=== PATIENT | female | born 1990 | race Caucasian/White ===

== ENCOUNTER 2017-04-14 20:21 | Inpatient (IN) | payer MEDICAID, OTHER ==
[~2017-04-14] VITALS: Ht 177.8 cm; Wt 128.0 kg
[2017-04-14] MEDS ORDERED: ONDANSETRON 4 MG INJ IV STA (22:38)
[2017-04-14] MEDS ORDERED: SOD CHLORIDE 0.9% 1,000 ML IV STA (22:38)
[2017-04-14] MEDS ORDERED: morphine 4 MG/ML VIAL IV STA (22:38)
--- NOTE | 2017-04-14 22:48 | ERD ---
ER Documentation Chief Complaint Chief Complaint bilateral arm pain/cramping, abdominal pain x 1 day. denies injury (WALLY CRAWFORD NP) HPI This 26-year-old female presents here in emergency department for complaints of body cramping, bilateral arm pain, after having an episode of abdominal pain this morning. Patient started to have upper abdominal pain this morning, had chills, describes the pain as cramping pain, 6/10 scale, radiated all over the body. Patient is complaining of nausea but denies any vomiting. (WALLY CRAWFORD NP) ROS All systems reviewed and are negative except as per history of present illness. (WALLY CRAWFORD NP) Medications Home Meds Reported Medications [none] Unknown Strength No Conflict Check 04/14/17 Allergies Allergies: Coded Allergies: No Known Drug Allergies (Verified Allergy, Unknown, 04/14/17) PMhx/Soc Medical and Surgical Hx: pt denies Medical Hx, pt denies Surgical Hx (WALLY CRAWFORD NP) FmHx Family History: No coronary disease, No diabetes, No other (WALLY CRAWFORD NP) Physical Exam Vitals Vital Signs Date Time Temp Pulse Resp B/P Pulse Ox O2 Delivery O2 Flow Rate FiO2 04/15/17 02:15 99.6 99 17 134/72 93 Room Air 04/14/17 20:26 100.1 118 20 122/93 96 (LOPEZ FIELD MD) Physical Exam GENERAL: The patient is well developed and appropriate for usual state of health, in no apparent distress. CHEST: Clear to auscultation bilaterally. There are no rales, wheezes or rhonchi. HEART: Regular rate and rhythm. No murmurs, clicks, rubs or gallops. No S3 or S4. ABDOMEN: Soft, nontender and nondistended. Good bowel sounds. No rebound or guarding. No gross peritonitis. No gross organomegaly or masses. No Marin sign or McBurney point tenderness. BACK: No midline or flank tenderness. EXTREMITIES: Equal pulses bilaterally. There is no peripheral clubbing, cyanosis or edema. No focal swelling or erythema. Full range of motion. Grossly neurovascularly intact. NEURO: Alert and oriented. Cranial nerves 2-12 intact. Motor strength in all 4 extremities with 5/5 strength. Sensation grossly intact. Normal speech and gait. SKIN: There is no apparent rash or petechia. The skin is warm and dry. HEMATOLOGIC AND LYMPHATIC: There is no evidence of excessive bruising or lymphedema. No gross cervical, axillary, or inguinal lymphadenopathy. (WALLY CRAWFORD NP) Result Diagram: 04/14/17 2300 04/14/17 2335 Results 24 hrs Laboratory Tests Test 04/14/17 23:00 04/14/17 23:10 04/14/17 23:35 White Blood Count 28.710^3/ul Red Blood Count 5.8210^6/ul Hemoglobin 15.4g/dl Hematocrit 47.9% Mean Corpuscular Volume 82.3fl Mean Corpuscular Hemoglobin 26.5pg Mean Corpuscular Hemoglobin Concent 32.2g/dl Red Cell Distribution Width 13.4% Platelet Count 50192^3/UL Mean Platelet Volume 10.8fl Neutrophils % 89.8% Lymphocytes % 4.6% Monocytes % 4.6% Eosinophils % 0.1% Basophils % 0.3% Nucleated Red Blood Cells % 0.0/100WBC Neutrophils # 25.710^3/ul Lymphocytes # 1.310^3/ul Monocytes # 1.310^3/ul Eosinophils # 0.010^3/ul Basophils # 0.110^3/ul Nucleated Red Blood Cells # 0.010^3/ul Urine Color VENKATA Urine Clarity SLIGHTLY CLOUDY Urine pH 5.0 Urine Specific [place] 1.028 Urine Ketones NEGATIVEmg/dL Urine Nitrite NEGATIVEmg/dL Urine Bilirubin 1+mg/dL Urine Urobilinogen 2+mg/dL Urine Leukocyte Esterase TRACELeu/ul Urine Microscopic RBC 135/HPF Urine Microscopic WBC 18/HPF Urine Squamous Epithelial Cells FEW/HPF Urine Mucus MANY/HPF Urine Hemoglobin 3+mg/dL Urine Glucose NEGATIVEmg/dL Urine Total Protein 2+mg/dl Sodium Level 145mmol/L Potassium Level 4.5mmol/L Chloride Level 104mmol/L Carbon Dioxide Level 26mmol/L Anion Gap 20 Blood Urea Nitrogen 9mg/dl Creatinine 0.85mg/dl Glucose Level 124mg/dl Calcium Level 9.8mg/dl Total Bilirubin 0.7mg/dl Direct Bilirubin 0.00mg/dl Indirect Bilirubin 0.7mg/dl Aspartate Amino Transf (AST/SGOT) 60IU/L Alanine Aminotransferase (ALT/SGPT) 180IU/L Alkaline Phosphatase 107IU/L Total Protein 8.5g/dl Albumin 4.5g/dl Globulin 4.00g/dl Albumin/Globulin Ratio 1.12 Lipase 80U/L Current Medications Medications (Trade) Dose Ordered Sig/Daily Route PRN Reason Start Time Stop Time Status Last Admin Dose Admin Sodium Chloride (NS) 1,000 ml @ 1,000 mls/hr Q1H STAT IV 04/14/17 22:38 04/14/17 23:37 DC 04/14/17 23:30 Morphine Sulfate (morphine) 4 mg ONCE STAT IV 04/14/17 22:38 04/14/17 22:40 DC 04/14/17 23:30 Ondansetron HCl (Zofran Inj) 4 mg ONCE STAT IV 04/14/17 22:38 04/14/17 22:40 DC 04/14/17 23:30 Acetaminophen 650 mg 650 mg ONCE ONCE PO 04/14/17 23:00 04/14/17 23:01 DC 04/14/17 23:30 Ceftriaxone Sodium (Rocephin) 50 ml @ 100 mls/hr ONCE ONCE IVPB 04/15/17 02:00 04/15/17 02:29 DC 04/15/17 01:56 (LOPEZ FIELD MD) Results 24 hrs PROCEDURE: CT Abdomen and pelvis without contrast. CLINICAL INDICATION: Abdominal pain. TECHNIQUE: CT scan of the abdomen and pelvis was performed on a multi- detector high-resolution CT scanner. Contiguous axial images were obtained from the lung bases to the ischial tuberosities without intravenous contrast. Coronal and sagittal reformatted images were also obtained. Images were reviewed on the PACS workstation. DICOM images are available. One or more of the following dose reduction techniques were used: - Automated exposure control. - Adjustment of the mA and/or kV according to patient size. - Use of iterative reconstruction technique. Exam CTD/vol = 23.34 mGy. Total exam DLP = 1665.61 mGy-cm. COMPARISON: None. FINDINGS: Evaluation of the lung bases demonstrates no pleural or parenchymal disease. Abdomen: The liver is normal in size and diffusely low in attenuation consistent with fatty infiltration. There is no focal mass or dilatation of the biliary tree. The gallbladder is not distended. There is moderate gallbladder wall thickening with mild adjacent stranding. The spleen, pancreas and bilateral adrenal glands are within normal limits. Bilateral kidneys are normal in size with no contour deforming mass identified. There is no radiopaque renal or ureteral calculus identified. There is no hydronephrosis or hydroureter. There is no retroperitoneal adenopathy. The abdominal aorta is of normal caliber. There is no abnormal bowel wall thickening or distension. There is no bowel obstruction or free air. A normal appendix is identified. There is no diverticulosis or diverticulitis. There is no ascites. Pelvis: The bladder is unremarkable. The uterus and adnexa are within normal limits. There is mild pelvic free fluid. There is no significant pelvic adenopathy. Evaluation of the osseous structures demonstrates no suspicious lytic or blastic lesion. IMPRESSION: Moderate gallbladder wall thickening. Clinical correlation and further evaluation by ultrasound is recommended. Fatty infiltration of the liver. Mild pelvic free fluid. .Juan Pablo Corona MD, Date Time Electronically viewed and signed by .Juan Pablo Corona MD, MD on 04/14/2017 23:45 .T/ CC: WALLY CRAWFORD MEDICAID COLLECTION SPECIALIST PROCEDURE: US abdomen limited right upper quadrant. CLINICAL INDICATION: Abdominal pain TECHNIQUE: Multiple real-time images were acquired of the patient's right upper quadrant of the abdomen utilizing a high resolution transducer. COMPARISON: CT abdomen and pelvis without contrast of 04/14/2017 FINDINGS: The study is limited due to patient body habitus. There is cholelithiasis with multiple gallstones in the gallbladder. There is diffuse gallbladder wall thickening with thickness approximately 5.3 mm and pericholecystic fluid is apparent. The common bile duct measures 4.7 mm in maximal dimension. The pancreas is not well seen due to bowel gas. There is diffuse increased hepatic echogenicity consistent with hepatic steatosis. The length of the liver equals 20.5 cm could be secondary to a Tristian lobe, normal variant. There is hepatopetal portal venous flow. The right kidney measures 13.7 cm in length and is unremarkable. IMPRESSION: Cholelithiasis and diffuse gallbladder wall thickening and pericholecystic fluid. On the CT there is pericholecystic soft tissue stranding/inflammation and fluid. Findings are consistent with acute cholecystitis. Pancreas not well seen. Hepatic steatosis. Please see above. RPTAT: HJES .Caleb Paula MD, MD Date Time Electronically viewed and signed by .Caleb Paula MD, MD on 04/15/2017 01:38 .S/ CC: WALLY CRAWFORD NP PROCEDURE: US Pelvis. CLINICAL INDICATION: Abdominal pain. Last menstrual period 04/12/2017 TECHNIQUE: Multiple sonographic images of the pelvis were obtained utilizing a transabdominal technique. The patient refused transvaginal ultrasound. The images were reviewed on a PACS workstation. COMPARISON: CT abdomen and pelvis of 04/14/2017 FINDINGS: The uterus measures 7.6 x 4.1 x 5.4 cm and is unremarkable. The thickness of the endometrium equals 4.6 mm. Neither ovary is seen. No adnexal mass is seen. No free intrapelvic fluid is seen on transabdominal ultrasound. IMPRESSION: Unremarkable uterus. Neither ovary seen. Please see above. RPTAT: HJES .Caleb Paula MD, MD Date Time Electronically viewed and signed by .Caleb Paula MD, MD on 04/15/2017 01:42 .S/ CC: WALLY CRAWFORD NP (WALLY CRAWFORD NP) Procedures/MDM Medical Decision Making: Patient has acute cholecystitis most likely causing the pain, further evaluation and management and treatment inpatient is necessary. Will be admitted to the hospital for further evaluation and management I discussed case with my attending physician, Dr. Field, will facilitate patient's admission to the hospital. (WALLY CRAWFORD NP) Patient is a 26-year-old female without past medical history who presents to the ER with abdominal pain and was found to have acute cholecystitis on ultrasound. She does have leukocytosis and low-grade fever. She is no signs of cholangitis. She had mild tachycardia which improved with IV fluids. She was given a dose of ceftriaxone, and will be admitted for surgical treatment. I discussed the case with Dr. Gutierrez, the surgeon on-call, who requested I admit the patient to the hospitalist. I discussed the case with Dr. Gallardo, who agreed to admit. (LOPEZ FIELD MD) Departure Diagnosis: Primary Impression: Acute cholecystitis Condition: Fair WALLY CRAWFORD NP Apr 14, 2017 22:33 LOPEZ FIELD MD Apr 15, 2017 02:34
[2017-04-14] MEDS ORDERED: ACETAMINOPHEN 325 MG TAB PO ONE (23:00)
[2017-04-14 23:08] LABS: ABNORMAL IP MESSAGE 1; BASOPHIL # 0.1 10^3/ul (0.0-0.1); BASOPHILS % 0.3 % (0.0-2.0); EOSINOPHILS % 0.1 % (0.0-7.0); HEMATOCRIT 47.9 % (37.0-47.0); HEMOGLOBIN 15.4 g/dl (12.0-16.0); LYMPHOCYTES # 1.3 10^3/ul (0.8-2.9); LYMPHOCYTES % 4.6 % (15.0-51.0); MEAN CORPUSCULAR HEMOGLOBIN 26.5 pg (29.0-33.0); MEAN CORPUSCULAR HGB CONC 32.2 g/dl (32.0-37.0); MEAN CORPUSCULAR VOLUME 82.3 fl (82.0-101.0); MEAN PLATELET VOLUME 10.8 fl (7.4-10.4); MONOCYTE # 1.3 10^3/ul (0.3-0.9); MONOCYTES % 4.6 % (0.0-11.0); NEUTROPHIL # 25.7 10^3/ul (1.6-7.5); NEUTROPHILS % 89.8 % (39.0-77.0); PLATELET COUNT 313 10^3/UL (140-415); RED BLOOD COUNT 5.82 10^6/ul (4.20-5.40); RED CELL DISTRIBUTION WIDTH 13.4 % (11.5-14.5); WHITE BLOOD COUNT 28.7 10^3/ul (4.8-10.8)
[2017-04-14 23:09] LABS: POSITIVE DIFF @See below
--- NOTE | 2017-04-14 23:45 | RADRPT ---
PROCEDURE: CT Abdomen and pelvis without contrast. CLINICAL INDICATION: Abdominal pain. TECHNIQUE: CT scan of the abdomen and pelvis was performed on a multi-detector high-resolution CT scanner. Contiguous axial images were obtained from the lung bases to the ischial tuberosities wit hout intravenous contrast. Coronal and sagittal reformatted images were also obtained. Images were reviewed on the PACS workstation. DICOM images are available. One or more of the following dose reduction techniques were used: - Automated exposure control. - Adjustment of the mA and/or kV according to patient size. - Use of iterative reconstruction technique. Exam CTD/vol = 23.34 mGy. Total exam DLP = 1665.61 mGy-cm. COMPARISON: None. FINDINGS: Evaluation of the lung bases demonstrates no pleural or parenchymal disease. Abdomen: The liver is normal in size and diffusely low in attenuation consistent with fatty infiltr ation. There is no focal mass or dilatation of the biliary tree. The gallbladder is not distended. There is moderate gallbladder wall thickening with mild adjacent stranding. The spleen, pancreas a nd bilateral adrenal glands are within normal limits. Bilateral kidneys are normal in size with no contour deforming mass identified. There is no radiopaque renal or ureteral calculus identified. T here is no hydronephrosis or hydroureter. There is no retroperitoneal adenopathy. The abdominal ao rta is of normal caliber. There is no abnormal bowel wall thickening or distension. There is no bowel obstruction or free air . A normal appendix is identified. There is no diverticulosis or diverticulitis. There is no asci florian. Pelvis: The bladder is unremarkable. The uterus and adnexa are within normal limits. There is mil d pelvic free fluid. There is no significant pelvic adenopathy. Evaluation of the osseous structures demonstrates no suspicious lytic or blastic lesion. IMPRESSION: Moderate gallbladder wall thickening. Clinical correlation and further evaluation by ultrasound is r ecommended. Fatty infiltration of the liver. Mild pelvic free fluid. .Juan Pablo Corona MD, MD Date Time Electronically viewed and signed by .Juan Pablo Corona MD, MD on 04/14/2017 23:45 .T/
[2017-04-14 23:53] LABS: ADD UMIC YES; UR ASCORBIC ACID NEGATIVE (NEGATIVE); UR BILIRUBIN (Dip) 1+ mg/dL (NEGATIVE); UR BLOOD (Dip) 3+ mg/dL (NEGATIVE); UR CLARITY SLIGHTLY CLOUDY (CLEAR); UR COLOR AMBER (YELLOW); UR GLUCOSE (Dip) NEGATIVE (NEGATIVE); UR KETONES (Dip) NEGATIVE (NEGATIVE); UR LEUKOCYTE ESTERASE (Dip) TRACE Leu/ul (NEGATIVE); UR MUCUS MANY /HPF (NONE SEEN); UR NITRITE (Dip) NEGATIVE (NEGATIVE); UR RBC 135 /HPF (0-5); UR SPECIFIC GRAVITY (Dip) 1.028 (1.003-1.030); UR SQUAMOUS EPITHELIAL CELL FEW /HPF (FEW); UR TOTAL PROTEIN (Dip) 2+ mg/dl (NEGATIVE); UR UROBILINOGEN (Dip) 2+ mg/dL (NEGATIVE)
[2017-04-15] VITALS (13 sets, daily range): BP systolic 96–168; BP diastolic 55–91; PULSE 86–106; RESP 18–27; TEMP 98.8; Ht 177.8 cm; Wt 128.0 kg
[2017-04-15 00:20] LABS: ALBUMIN 4.5 g/dl (3.3-4.9); ALBUMIN/GLOBULIN RATIO 1.12; BILIRUBIN,INDIRECT 0.7 mg/dl (0-1.1); BILIRUBIN,TOTAL 0.7 mg/dl (0.2-1.3); CALCIUM 9.8 mg/dl (8.4-10.2); CREATININE 0.85 mg/dl (0.44-1.00); POTASSIUM 4.5 mmol/L (3.5-5.1); TOTAL PROTEIN 8.5 g/dl (6.1-8.1)
--- NOTE | 2017-04-15 01:38 | RADRPT ---
PROCEDURE: US abdomen limited right upper quadrant. CLINICAL INDICATION: Abdominal pain TECHNIQUE: Multiple real-time images were acquired of the patient's right upper quadrant of the ab domen utilizing a high resolution transducer. COMPARISON: CT abdomen and pelvis without contrast of 04/14/2017 FINDINGS: The study is limited due to patient body habitus. There is cholelithiasis with multiple gallstones i n the gallbladder. There is diffuse gallbladder wall thickening with thickness approximately 5.3 mm and pericholecystic fluid is apparent. The common bile duct measures 4.7 mm in maximal dimension. The pancreas is not well seen due to bowel gas. There is diffuse increased hepatic echogenicity con sistent with hepatic steatosis. The length of the liver equals 20.5 cm could be secondary to a Ried el lobe, normal variant. There is hepatopetal portal venous flow. The right kidney measures 13.7 cm in length and is unremarkable. IMPRESSION: Cholelithiasis and diffuse gallbladder wall thickening and pericholecystic fluid. On the CT there is pericholecystic soft tissue stranding/inflammation and fluid. Findings are consistent with acute ch olecystitis. Pancreas not well seen. Hepatic steatosis. Please see above. RPTAT: HJES .Caleb Paula MD, MD Date Time Electronically viewed and signed by .Caleb Paula MD, MD on 04/15/2017 01:38 .S/
--- NOTE | 2017-04-15 01:42 | RADRPT ---
PROCEDURE: US Pelvis. CLINICAL INDICATION: Abdominal pain. Last menstrual period 04/12/2017 TECHNIQUE: Multiple sonographic images of the pelvis were obtained utilizing a transabdominal tech nique. The patient refused transvaginal ultrasound. The images were reviewed on a PACS workstation. COMPARISON: CT abdomen and pelvis of 04/14/2017 FINDINGS: The uterus measures 7.6 x 4.1 x 5.4 cm and is unremarkable. The thickness of the endometrium equals 4.6 mm. Neither ovary is seen. No adnexal mass is seen. No free intrapelvic fluid is seen on transa bdominal ultrasound. IMPRESSION: Unremarkable uterus. Neither ovary seen. Please see above. RPTAT: HJES .Caleb Paula MD, MD Date Time Electronically viewed and signed by .Caleb Paula MD, on 04/15/2017 01:42 .S/
[2017-04-15] MEDS ORDERED: CEFTRIAXONE 1 GM/50 ML (PMX) 50 ML IVPB ONE (02:00)
[2017-04-15] MEDS ORDERED: ACETAMINOPHEN 325 MG TAB PO PRN (03:00)
[2017-04-15] MEDS ORDERED: ONDANSETRON 4 MG INJ IV PRN ×4 (03:00→11:30)
[2017-04-15] MEDS ORDERED: morphine 4 MG/ML VIAL IV STA (03:48)
--- NOTE | 2017-04-15 06:49 | HP ---
Date/Time of Note Date/Time of Note DATE: 04/15/17 TIME: 06:44 Assessment/Plan VTE Prophylaxis VTE Prophylaxis Intervention: SCD's Assessment/Plan Assessment/Plan 1. Cholecystitis with possible choledocholithiasis -Keep n.p.o. with IV fluid -IV antibiotic -Pain management -Awaiting surgical evaluation 2. Sepsis, as evidenced by fever and tachycardia and leukocytosis, secondary to above -See #1 HPI/ROS Admit Date/Time Admit Date/Time Hx of Present Illness This is a 26-year-old female with no significant past medical history who presented to the emergency department complaining of abdominal pain 1 day. Pain is diffuse with associated nausea. She also reported subjective fever and chills. While in ER, she had a temperature of 101.3 and was tachycardic with a heart rate of 118. Lab shows WBC of almost 29,000, AST 60, ALT 181. Right upper quadrant ultrasound showed Cholelithiasis and diffuse gallbladder wall thickening and pericholecystic fluid. PMH/Family/Social Past Medical History Medical History: no pertinent history Past Surgical History Past Surgical Hx: no surgical history Social History Alcohol Use: none Smoking Status: Never smoker Drug Use: none Exam/Review of Systems Vital Signs Vitals Vital Signs Date Time Temp Pulse Resp B/P Pulse Ox O2 Delivery O2 Flow Rate FiO2 04/15/17 06:10 98.8 98 22 97 Room Air 04/15/17 04:00 130/77 Exam Constitutional: alert, oriented Head: atraumatic, normocephalic Eyes: EOMI, PERRL Respiratory: clear to auscultation Cardiovascular: nl pulses, regular rate and rhythm Gastrointestinal: non-tender, soft Extremities: normal pulses Labs Result Diagram: 04/14/17 2300 04/14/17 2755 Medications Medications Current Medications Dextrose/Sodium Chloride (D5-1/2ns) 1,000 ml @ 125 mls/hr Q8H IV ; Start 04/15 at 06:42; Status UNV Ondansetron HCl (Zofran Inj) 4 mg Q6H PRN IV NAUSEA AND/OR VOMITING; Start at 07:00; Status UNV Acetaminophen (Tylenol Supp) 650 mg Q6H PRN [place] PAIN LEVEL 1-3 OR FEVER; Start 04/15/17 at 07:00; Status UNV Morphine Sulfate (morphine) 4 mg Q4H PRN IV SEVERE PAIN LEVEL 7-10; Start at 07:00; Status UNV Hydromorphone HCl (Dilaudid) 0.5 mg Q4H PRN IV SEVERE PAIN LEVEL 7-10; Start 04/15/17 at 07:00; Status UNV Famotidine 20 mg 20 mg Q12 IV ; Start 04/15/17 at 09:00; Status UNV Piperacillin Sod/ Tazobactam Sod (Zosyn 3.375gm/ 50 ml (Pmx)) 50 ml @ 100 mls/ hr Q6H IV ; Start 04/15/17 at 07:00; Status UNV DENNY HORTON MD Apr 15, 2017 06:49
[2017-04-15] MEDS ORDERED: ACETAMINOPHEN 650 MG SUPP PR PRN (07:00)
[2017-04-15] MEDS ORDERED: ALBUTEROL/IPRATROPIUM (NEB) 3 ML AMP HHN PRN (07:00)
[2017-04-15] MEDS ORDERED: HYDROmorphONE 0.5 MG/0.5 ML SYG IV PRN (07:00)
[2017-04-15] MEDS ORDERED: NACL 0.9% 3 ML SYG IV SCH (07:00)
[2017-04-15] MEDS ORDERED: morphine 4 MG/ML VIAL IV PRN (07:00)
[2017-04-15] MEDS: PIPER-TAZO 3.375 GM IV (PMX) 50 ML IV SCH ×4 (07:02→23:45)
[2017-04-15] MEDS: DEXTROSE 5%-0.45% NACL 1,000 ML IV SCH ×4 (07:02→22:42)
--- NOTE | 2017-04-15 07:49 | CONS ---
Date/Time of Note Date/Time of Note DATE: 04/15/17 TIME: 07:45 Assessment/Plan Assessment/Plan Additional Assessment/Plan Acute cholecystitis Plan: Laparoscopic cholecystectomy. I have discussed the procedure, outcomes, expectations, alternatives and risks in detail with the patient and father who have an excellent understanding of the nature of her situation and agreed to the proposed plan of therapy as outlined. Consultation Date/Type/Reason Admit Date/Time Date of Consultation: Apr 15, 2017 Reason for Consultation Acute cholecystitis Hx of Present Illness The patient is an otherwise healthy 26-year-old female who presents to the emergency room with abdominal pain fever and leukocytosis of 28,000. Abdominal ultrasound and CT show acute cholecystitis without ductal dilatation. She is admitted and surgical consultation is requested in that regard Constitutional: no complaints Eyes: no complaints ENT: no complaints Respiratory: no complaints Cardiovascular: no complaints Gastrointestinal: pain (Right upper quadrant) Genitourinary: no complaints Musculoskeletal: no complaints Skin: no complaints Neurologic: no complaints Endocrine: no complaints Lymphatic: no complaints Psychological: no complaints Immunologic: no complaints Past Medical History Medical History: no pertinent history Past Surgical History Past Surgical Hx: no surgical history Family History Significant Family History: no pertinent family hx Social History Alcohol Use: none Smoking Status: Never smoker Drug Use: none Exam/Review of Systems Vital Signs Vitals Vital Signs Date Time Temp Pulse Resp B/P Pulse Ox O2 Delivery O2 Flow Rate FiO2 04/15/17 07:20 98.8 92 20 116/58 98 Room Air Exam Constitutional: alert, oriented Psych: no complaints Head: normocephalic Eyes: nl conjunctiva ENMT: nl external ears & nose Neck: supple Respiratory: clear to auscultation Cardiovascular: regular rate and rhythm Gastrointestinal: tender (Right upper quadrant with a positive Marin sign) Musculoskeletal: nl extremities to inspection Extremities: normal pulses Neurological: [employer] DEV SPECIALIST II-XII intact Skin: nl turgor Lymph: nl lymph nodes Results Result Diagram: 04/14/17 2300 04/14/17 2335 Results 24 hrs Laboratory Tests Test 04/14/17 23:00 04/14/17 23:10 04/14/17 23:35 White Blood Count 28.7 H Red Blood Count 5.82 H Hemoglobin 15.4 Hematocrit 47.9 H Mean Corpuscular Volume 82.3 Mean Corpuscular Hemoglobin 26.5 L Mean Corpuscular Hemoglobin Concent 32.2 Red Cell Distribution Width 13.4 Platelet Count 313 Mean Platelet Volume 10.8 H Neutrophils % 89.8 H Lymphocytes % 4.6 L Monocytes % 4.6 Eosinophils % 0.1 Basophils % 0.3 Nucleated Red Blood Cells % 0.0 Neutrophils # 25.7 H Lymphocytes # 1.3 Monocytes # 1.3 H Eosinophils # 0.0 Basophils # 0.1 Nucleated Red Blood Cells # 0.0 Urine Color [place] Urine Clarity SLIGHTLY CLOUDY A Urine pH 5.0 Urine Specific [place] 1.028 Urine Ketones NEGATIVE Urine Nitrite NEGATIVE Urine Bilirubin 1+ H Urine Urobilinogen 2+ H Urine Leukocyte Esterase TRACE A Urine Microscopic RBC 135 H Urine Microscopic WBC 18 H Urine Squamous Epithelial Cells FEW Urine Mucus MANY A Urine Hemoglobin 3+ H Urine Glucose NEGATIVE Urine Total Protein 2+ H Sodium Level 145 H Potassium Level 4.5 Chloride Level 104 Carbon Dioxide Level 26 Anion Gap 20 H Blood Urea Nitrogen 9 Creatinine 0.85 Glucose Level 124 Calcium Level 9.8 Total Bilirubin 0.7 Direct Bilirubin 0.00 Indirect Bilirubin 0.7 Aspartate Amino Transf (AST/SGOT) 60 H Alanine Aminotransferase (ALT/SGPT) 180 H Alkaline Phosphatase 107 Total Protein 8.5 H Albumin 4.5 Globulin 4.00 H Albumin/Globulin Ratio 1.12 Lipase 80 Medications Medications Current Medications Dextrose/Sodium Chloride (D5-1/2ns) 1,000 ml @ 125 mls/hr Q8H IV Last administered on 04/15/17t 07:02; Admin Dose 125 MLS/HR; Start 04/15/17 at 06: 42 Ondansetron HCl (Zofran Inj) 4 mg Q6H PRN IV NAUSEA AND/OR VOMITING; Start at 07:00 Acetaminophen (Tylenol Supp) 650 mg Q6H PRN [place] PAIN LEVEL 1-3 OR FEVER; Start 04/15/17 at 07:00 Morphine Sulfate (morphine) 4 mg Q4H PRN IV SEVERE PAIN LEVEL 7-10; Start at 07:00 Hydromorphone HCl (Dilaudid) 0.5 mg Q4H PRN IV SEVERE PAIN LEVEL 7-10; Start 04/15/17 at 07:00 Famotidine 20 mg 20 mg Q12 IV ; Start 04/15/17 at 09:00 Piperacillin Sod/ Tazobactam Sod (Zosyn 3.375gm/ 50 ml (Pmx)) 50 ml @ 100 mls/ hr Q6 IV Last administered on 04/15/17t 07:02; Admin Dose 100 MLS/HR; Start 04/15/17 at 07:00 MCKINLEY ORNELAS MD Apr 15, 2017 07:49
[2017-04-15] MEDS ORDERED: GLYCOPYRROLATE 0.4 MG INJ ONE ×3 (10:13→10:27)
[2017-04-15] MEDS ORDERED: NEOSTIGMINE 3 MG/3 ML SYRINGE ONE ×2 (10:13→10:27)
[2017-04-15] MEDS ORDERED: SUCCINYLCHOLINE CHLORIDE 100 MG/5 ML SYG IV ONE (10:13)
[2017-04-15] MEDS ORDERED: ROCURONIUM 50 MG INJ ONE ×2 (10:13→11:01)
[2017-04-15] MEDS ORDERED: PROPOFOL 20 ML ONE (10:13)
[2017-04-15] MEDS ORDERED: LIDOCAINE 2% (SDV) 5 ML INJ ONE (10:13)
[2017-04-15] MEDS ORDERED: MEPERIDINE 100 MG INJ ONE (10:14)
[2017-04-15] MEDS ORDERED: BUPIVACAINE 0.5%/EPI (SDV) 30 ML INJ ONE (10:20)
[2017-04-15] MEDS ORDERED: CEFAZOLIN 1 GM INJ ONE (10:26)
[2017-04-15] MEDS ORDERED: ONDANSETRON 4 MG INJ ONE (10:26)
[2017-04-15] MEDS ORDERED: METOCLOPRAMIDE 10 MG INJ ONE (10:27)
[2017-04-15] MEDS ORDERED: OXYCODONE/ACETAMINOPHEN (5/325) TAB PO PRN ×4 (10:30→11:30)
[2017-04-15] MEDS ORDERED: METOCLOPRAMIDE 10 MG INJ IV PRN (10:30)
[2017-04-15] MEDS ORDERED: EPHEDrine SULFATE 50 MG/5 ML SYG IV PRN (10:30)
[2017-04-15] MEDS ORDERED: DIPHENHYDRAMINE 50 MG INJ IV PRN (10:30)
[2017-04-15] MEDS ORDERED: MIDAZOLAM 1 MG/ML 2 ML INJ IV PRN (10:30)
[2017-04-15] MEDS ORDERED: FENTAnyl 50 MCG/ML VIAL IV PRN ×3 (10:30)
[2017-04-15] MEDS ORDERED: LABETALOL HCL 20MG INJ IV PRN (10:30)
[2017-04-15] MEDS ORDERED: hydrALAzine 20 MG INJ IV PRN (10:30)
[2017-04-15] MEDS ORDERED: HYDROmorphONE (0.2 MG/ML) 10ML SYG IV PRN ×3 (10:30)
[2017-04-15] MEDS ORDERED: MEPERIDINE 25 MG INJ IV PRN (10:30)
--- NOTE | 2017-04-15 11:28 | OPR ---
Date/Time of Note Date/Time of Note DATE: 04/15/17 TIME: Operative Report Procedure Date: Apr 15, 2017 Preoperative Diagnosis Acute cholecystitis Postoperative Diagnosis Acute cholecystitis Operation/Procedure Performed 1. Laparoscopic cholecystectomy 2. Placement of drain Surgeon Mckinley Ornelas MD Disposal Plant Operator None Anesthesia Type: general Anesthesiologist: CORI GOMEZ MD Estimated Blood Loss: 10 - 50 ml's Transfusion none Specimen Gallbladder Grafts/Implants none Tubes/Drains #19 Round Evangelist drain Complications none Pt Condition Post Procedure: stable Disposition: PACU Indications Acute cholecystitis Procedure Description After satisfactory general endotracheal anesthesia was achieved, the abdomen was prepped and draped in the usual fashion. The abdomen was insufflated with carbon dioxide through an umbilical Veress needle to 15 mmHg pressure. The Veress needle was removed and the umbilical incision extended to 5 mm through which a 5 mm trocar was placed. A 5 mm 0 lens was placed. The gallbladder was acutely inflamed, thick edematous and erythematous. Under direct visualization a 12 mm epigastric trocar was placed as well as 2 5 mm right lateral abdominal trochars. The omentum was peeled off the gallbladder, enabling the dome of the gallbladder to be grasped and retracted superiorly. Omental adhesions continued to be taken down to the level of the infundibulum, which was grasped and retracted inferior laterally. The hepatoduodenal ligament was carefully dissected. The cystic duct was dissected circumferentially, then triply hemoclipped and divided high at the junction of the gallbladder and the cystic duct. The cystic artery was identified immediately posteriorly, and this was triply hemoclipped and divided. The gallbladder was then dissected from below using electrocautery dissection and placed fully intact into an Endo Catch removed via the epigastric route. Hemostasis was excellent. Because of the marked amount of inflammation and infection, it was elected to place a drain. A #19 round Evangelist drain was placed draining the subhepatic space and gallbladder fossa, and exiting through the lateralmost puncture site where it was secured to the skin with 2-0 nylon. Irrigant returned clear. The abdomen was then desufflated and the trochars were removed. The fascia of the epigastrium was closed with a single suture of 0 Vicryl. The skin punctures were infiltrated with 30 cc of 0.25% Marcaine with epinephrine and closed with lavonne. Sponge and needle counts were reported as correct 2. MCKINLEY ORNELAS MD Apr 15, 2017 11:28
[2017-04-15] MEDS ORDERED: morphine 2 MG INJ IV PRN (11:30)
[2017-04-15 13:56] LABS: BASOPHILS % 0.2 % (0.0-2.0); HEMOGLOBIN 13.2 g/dl (12.0-16.0); LYMPHOCYTES # 1.3 10^3/ul (0.8-2.9); LYMPHOCYTES % 8.9 % (15.0-51.0); MEAN CORPUSCULAR HEMOGLOBIN 26.5 pg (29.0-33.0); MEAN CORPUSCULAR HGB CONC 32.2 g/dl (32.0-37.0); MEAN CORPUSCULAR VOLUME 82.2 fl (82.0-101.0); MEAN PLATELET VOLUME 10.1 fl (7.4-10.4); MONOCYTE # 0.9 10^3/ul (0.3-0.9); MONOCYTES % 6.4 % (0.0-11.0); NEUTROPHIL # 12.1 10^3/ul (1.6-7.5); NEUTROPHILS % 84.2 % (39.0-77.0); PLATELET COUNT 283 10^3/UL (140-415); RED BLOOD COUNT 4.99 10^6/ul (4.20-5.40); RED CELL DISTRIBUTION WIDTH 13.6 % (11.5-14.5); WHITE BLOOD COUNT 14.4 10^3/ul (4.8-10.8)
--- NOTE | 2017-04-15 14:07 | PN ---
Date/Time of Note Date/Time of Note DATE: 04/15/17 TIME: 14:02 Assessment/Plan VTE Prophylaxis VTE Prophylaxis Intervention: SCD's Lines/Catheters IV Catheter Type (from Nrsg): Peripheral IV Assessment/Plan Chief Complaint/Hosp Course Assessment and plan 1. Sepsis secondary to cholecystitis. Surgeon following. Patient status post laparoscopic cholecystectomy. Leukocytosis downward trending. Continue with pain management. Continue the antibiotics. 2. Obesity. Weight reduction was advised. Disposition plan: Continue with analgesics. Continue postop care. DC when medically stable for by consultants. Discussed plan of care Dr. Collado Problems: Subjective 24 Hr Interval Summary Free Text/Dictation no s/s of distress. reports good pain control at this time Exam/Review of Systems Vital Signs Vitals Vital Signs Date Time Temp Pulse Resp B/P Pulse Ox O2 Delivery O2 Flow Rate FiO2 04/15/17 12:21 92 22 135/70 94 Nasal Cannula 5.0 04/15/17 11:36 98.6 Exam Constitutional: alert, obese, oriented Psych: nl mood/affect Head: normocephalic Eyes: nl conjunctiva Neck: non-tender, supple Respiratory: clear to auscultation, normal air movement Cardiovascular: regular rate and rhythm Gastrointestinal: soft, tender Neurological: INSURANCE VERIFY REP II-XII intact, nl mental status, nl speech Skin: other (surgical site cdi with drain in place ) Results Result Diagram: 04/15/17 1337 04/14/17 2335 Results 24 hrs Laboratory Tests Test 04/14/17 23:00 04/14/17 23:10 04/14/17 23:35 04/15/17 13:37 White Blood Count 28.7 H 14.4 #H Red Blood Count 5.82 H 4.99 Hemoglobin 15.4 13.2 Hematocrit 47.9 H 41.0 Mean Corpuscular Volume 82.3 82.2 Mean Corpuscular Hemoglobin 26.5 L 26.5 L Mean Corpuscular Hemoglobin Concent 32.2 32.2 Red Cell Distribution Width 13.4 13.6 Platelet Count 313 283 Mean Platelet Volume 10.8 H 10.1 Neutrophils % 89.8 H 84.2 H Lymphocytes % 4.6 L 8.9 L Monocytes % 4.6 6.4 Eosinophils % 0.1 0.0 Basophils % 0.3 0.2 Nucleated Red Blood Cells % 0.0 0.0 Neutrophils # 25.7 H 12.1 H Lymphocytes # 1.3 1.3 Monocytes # 1.3 H 0.9 Eosinophils # 0.0 0.0 Basophils # 0.1 0.0 Nucleated Red Blood Cells # 0.0 0.0 Urine Color [place] Urine Clarity SLIGHTLY CLOUDY A Urine pH 5.0 Urine Specific [place] 1.028 Urine Ketones NEGATIVE Urine Nitrite NEGATIVE Urine Bilirubin 1+ H Urine Urobilinogen 2+ H Urine Leukocyte Esterase TRACE A Urine Microscopic RBC 135 H Urine Microscopic WBC 18 H Urine Squamous Epithelial Cells FEW Urine Mucus MANY A Urine Hemoglobin 3+ H Urine Glucose NEGATIVE Urine Total Protein 2+ H Sodium Level 145 H Potassium Level 4.5 Chloride Level 104 Carbon Dioxide Level 26 Anion Gap 20 H Blood Urea Nitrogen 9 Creatinine 0.85 Glucose Level 124 Calcium Level 9.8 Total Bilirubin 0.7 Direct Bilirubin 0.00 Indirect Bilirubin 0.7 Aspartate Amino Transf (AST/SGOT) 60 H Alanine Aminotransferase (ALT/SGPT) 180 H Alkaline Phosphatase 107 Total Protein 8.5 H Albumin 4.5 Globulin 4.00 H Albumin/Globulin Ratio 1.12 Lipase 80 Medications Medications Current Medications Dextrose/Sodium Chloride (D5-1/2ns) 1,000 ml @ 125 mls/hr Q8H IV Last administered on 04/15/17 13:38; Admin Dose 125 MLS/HR; Start 04/15/17 at 06: 42 Ondansetron HCl (Zofran Inj) 4 mg Q6H PRN IV NAUSEA AND/OR VOMITING; Start at 07:00 Acetaminophen (Tylenol Supp) 650 mg Q6H PRN DC PAIN LEVEL 1-3 OR FEVER; Start 04/15/17 at 07:00 Morphine Sulfate (morphine) 4 mg Q4H PRN IV SEVERE PAIN LEVEL 7-10; Start at 07:00 Hydromorphone HCl (Dilaudid) 0.5 mg Q4H PRN IV SEVERE PAIN LEVEL 7-10; Start 04/15/17 at 07:00 Famotidine 20 mg 20 mg Q12 IV ; Start 04/15/17 at 09:00 Piperacillin Sod/ Tazobactam Sod (Zosyn 3.375gm/ 50 ml (Pmx)) 50 ml @ 100 mls/ hr Q6 IV Last administered on 11/23/17at 13:37; Admin Dose 100 MLS/HR; Start 04/15/17 at 07:00 Oxycodone/ Acetaminophen (Percocet (5/ 325)) 1 tab Q4H PRN PO MILD PAIN (1-3); Start 04/15/17 at 11:30 Oxycodone/ Acetaminophen (Percocet (5/ 325)) 2 tab Q4H PRN PO MODERATE PAIN (4- 6); Start 04/15/17 at 11:30 Morphine Sulfate (morphine) 2 mg ONCE PRN IV SEVERE PAIN LEVEL 7-10; Start at 11:30; Stop 04/15/17 at 23:00 Ondansetron HCl (Zofran Inj) 4 mg Q6H PRN IV NAUSEA; Start 04/15/17 at 11:30 KAYLA DUMAS Apr 15, 2017 14:07
[2017-04-15 14:15] LABS: ALBUMIN 3.9 g/dl (3.3-4.9); ALBUMIN/GLOBULIN RATIO 1.08; BILIRUBIN,INDIRECT 1.1 mg/dl (0-1.1); BILIRUBIN,TOTAL 1.1 mg/dl (0.2-1.3); CALCIUM 9.1 mg/dl (8.4-10.2); CREATININE 0.73 mg/dl (0.44-1.00); MAGNESIUM 1.9 mg/dl (1.7-2.5); PHOSPHORUS 3.6 mg/dl (2.5-4.9); TOTAL PROTEIN 7.5 g/dl (6.1-8.1)
[2017-04-15] MEDS: FAMOTIDINE 20 MG INJ IV SCH ×2 (15:00→21:49)
[2017-04-16 02:00] VITALS: BP 107/53; RESP 20
[2017-04-16] MEDS: PIPER-TAZO 3.375 GM IV (PMX) 50 ML IV SCH ×2 (06:13→12:23)
[2017-04-16] MEDS: DEXTROSE 5%-0.45% NACL 1,000 ML IV SCH (06:13)
[2017-04-16 06:27] LABS: BASOPHILS % 0.3 % (0.0-2.0); EOSINOPHILS # 0.1 10^3/ul (0.0-0.5); EOSINOPHILS % 0.5 % (0.0-7.0); HEMATOCRIT 37.2 % (37.0-47.0); HEMOGLOBIN 12.2 g/dl (12.0-16.0); LYMPHOCYTES % 19.3 % (15.0-51.0); MEAN CORPUSCULAR HEMOGLOBIN 27.1 pg (29.0-33.0); MEAN CORPUSCULAR HGB CONC 32.8 g/dl (32.0-37.0); MEAN CORPUSCULAR VOLUME 82.7 fl (82.0-101.0); MEAN PLATELET VOLUME 10.3 fl (7.4-10.4); MONOCYTES % 9.1 % (0.0-11.0); NEUTROPHIL # 7.4 10^3/ul (1.6-7.5); NEUTROPHILS % 70.6 % (39.0-77.0); PLATELET COUNT 239 10^3/UL (140-415); RED CELL DISTRIBUTION WIDTH 13.9 % (11.5-14.5); WHITE BLOOD COUNT 10.5 10^3/ul (4.8-10.8)
[2017-04-16 06:52] LABS: MAGNESIUM 1.9 mg/dl (1.7-2.5); PHOSPHORUS 3.4 mg/dl (2.5-4.9)
[2017-04-16 07:01] LABS: ALBUMIN 3.4 g/dl (3.3-4.9); ALBUMIN/GLOBULIN RATIO 0.97; BILIRUBIN,INDIRECT 1.6 mg/dl (0-1.1); BILIRUBIN,TOTAL 1.6 mg/dl (0.2-1.3); CALCIUM 8.9 mg/dl (8.4-10.2); CREATININE 0.71 mg/dl (0.44-1.00); POTASSIUM 3.6 mmol/L (3.5-5.1); TOTAL PROTEIN 6.9 g/dl (6.1-8.1)
[2017-04-16 07:35] VITALS: BP 119/58; RESP 20
[2017-04-16] MEDS: FAMOTIDINE 20 MG INJ IV SCH (09:17)
[2017-04-16] MEDS ORDERED: SENN-53 PO (09:49)
[2017-04-16] MEDS ORDERED: OXYC-438 PO (09:49)
--- NOTE | 2017-04-16 09:53 | PDOCDIS ---
Discharge Instructions DIAGNOSIS Discharge Diagnosis 1. Sepsis secondary to cholecystitis. 2. Obesity. HOME CARE INSTRUCTIONS: Special Diet: REGULAR DIET FOLLOW UP/APPOINTMENTS Follow-up Plan 1. Follow up with Dr. Otto Gutierrez in one week KAYLA DUMAS Apr 16, 2017 09:53
--- NOTE | 2017-04-16 11:49 | PN ---
Date/Time of Note Date/Time of Note DATE: 04/16/17 TIME: 11:48 Assessment/Plan Lines/Catheters IV Catheter Type (from [facility]): Peripheral IV Patel in Place (from [facility]): No Assessment/Plan Chief Complaint/Hosp Course The patient is an otherwise healthy 26-year-old female who presents to the emergency room with abdominal pain fever and leukocytosis of 28,000. Abdominal ultrasound and CT show acute cholecystitis without ductal dilatation. She is admitted and surgical consultation is requested in that regard Problems: Assessment/Plan Excellent recovery I have removed the LUIS drain The patient is cleared for discharge with p.o. pain medications and antibiotics I have left the patient a prescription for [place] and Keflex Subjective 24 Hr Interval Summary Postoperative day #1 Markedly symptomatically improved Exam/Review of Systems Vital Signs Vitals Vital Signs Date Time Temp Pulse Resp B/P Pulse Ox O2 Delivery O2 Flow Rate FiO2 04/16/17 07:35 99.5 83 20 119/58 90 04/15/17 18:51 Nasal Cannula 1.0 Intake and Output 04/15/17 04/15/17 04/16/17 15:00 23:00 07:00 Intake Total 1100 ml 2050 ml 1290 ml Output Total 10 ml 460 ml 40 ml Balance 1090 ml 1590 ml 1250 ml Results Result Diagram: 04/16/17 0544 04/16/17 0544 MCKINLEY ORNELAS MD Apr 16, 2017 11:49
[2017-04-16 14:26] VITALS: BP 129/61; RESP 18
--- NOTE | 2017-04-20 17:41 | DS ---
Date/Time of Note Date/Time of Note DATE: 04/20/17 TIME: 17:40 Discharge Summary Admission/Discharge Info Admit Date/Time Apr 15, 2017 at 12:55 Discharge Date/Time Apr 16, 2017 at 16:40 Discharge Diagnosis 1. Sepsis secondary to cholecystitis. 2. Obesity. Patient Condition: Stable Consults 1. Dr. Otto Gutierrez Hospital Course This is a 26-year-old female with no significant past medical history who came to [facility] due to reports of abdominal pain for 1 day duration. She did report diffuse pain associated with nausea. She also had a white count of 29,000 and some transaminitis secondary to this. She had a right upper quadrant ultrasound showing cholelithiasis with diffuse gallbladder wall thickening and pericholecystic fluid. Patient was seen by general surgeon for this issue. Patient did have some sepsis secondary to cholecystitis. She did undergo laparoscopic cholecystectomy and afterwards her leukocytosis to down drain. She was optimized with antibiotics. During her course of stay she did improve. We did advance her diet and provided with analgesics as needed. For her obesity she was advised weight reduction. The plan of care was discussed with the patient and patient did verbalize her understanding. On the day of discharge patient was in stable condition Discussed plan of care with Dr. Collado [facility] Active Scripts Sennosides* (Senna Lax*) 8.6 Mg Tablet, 1 TAB PO Q12H Y for CONSTIPATION, #30 TAB Prov:KAYLA DUMAS 04/16/17 Oxycodone HCl/Acetaminophen (Oxycodone-Acetaminophen 5-325) 1 Each Tablet, 2 TAB PO Q4H Y for MODERATE PAIN (4-6), #30 TAB Prov:KAYLA DUMAS 04/16/17 Discontinued Reported Medications [none] Unknown Strength No Conflict Check 04/14/17 Follow-up Plan 1. Follow up with Dr. Otto Gutierrez in one week Primary Care Provider Care Physician No Primary Time spent on discharge: > 30 minutes KAYLA DUMAS Apr 20, 2017 17:41
== END 2017-04-16 16:40 | disposition home or self-care (01) | DRG 417 ==
LOC: FTE 20:21 → SDS 04-15 08:07 → MS2 04-15 12:55 → SDS 04-15 12:55 → MS2 04-15 13:05
PROVIDERS: ADMIT Internal Medicine; ATTEND Internal Medicine
PROC: 0FT44ZZ Resection of Gallbladder, Percutaneous Endoscopic Approach (ICD-10-PCS; principal; 2017-04-15 10:00)
DX: K81.0 Acute cholecystitis (principal); A41.9 Sepsis, unspecified organism; Z68.41 Body mass index [BMI] 40.0-44.9, adult; E66.01 Morbid (severe) obesity due to excess calories
CPT/HCPCS: 36415; 74176; 76705; 76856; 80053; 81001; 83690; 83735; 84100; 85025; 87400; 88304; 96365; 96375; 96376; J0360; J0690; J0696; J1170; J2175; J2270; J2405; J2543; J2710; J2765; J7030; J7042

== ENCOUNTER 2017-11-23 20:54 | Emergency (ER) | END 2017-11-24 00:07 | disposition home or self-care (01) ==